=== PATIENT | female | born 1970 | race Native Hawaiian/Other Pacific Islander ===

== ENCOUNTER 2023-07-10 19:03 | Emergency (ER) | payer OTHER ==
[~2023-07-10] VITALS: Ht 167.6 cm; Wt 61.2 kg
[2023-07-10 19:03] VITALS: BP 143/69; TEMP 97.9
[2023-07-10 19:13] LABS: PLATELET COUNT 248 K/uL (152-353)
[2023-07-10 19:22] LABS: POTASSIUM 4.1 mmol/L (3.6-5.2); SODIUM 140 mmol/L (136-145)
== END 2023-07-10 21:15 | disposition home or self-care (01) ==
LOC: ED 19:03
PROVIDERS: Family Medicine
DX: R53.83 Other fatigue (principal)
CPT/HCPCS: 80053; 81002; 84443; 84484; 85027; 87502; 87635; 87651; 93005; 96360; 99284; J2310; U0003